=== PATIENT | female | born 1980 | race Two or more races ===

== ENCOUNTER 2018-02-01 10:02 | Emergency (ER) | payer SELFPAY ==
[~2018-02-01] VITALS: Ht 157.5 cm; Wt 71.5 kg
[2018-02-01] MEDS ORDERED: tylenol (10:17)
[2018-02-01] MEDS ORDERED: CEPHALEXIN 250MG CAPSULE PO ONE (11:15)
[2018-02-01] MEDS ORDERED: TETANUS, DIPHTHERIA, PERTUSSIS VAC/PF 0.5ML (>7YR OLD) IM ONE (11:15)
[2018-02-01] MEDS ORDERED: BACITRACIN ZINC OINT UDPKT TOP ONE (12:45)
[2018-02-01 12:53] VITALS: BP 129/59
== END 2018-02-01 12:58 | disposition home or self-care (01) ==
LOC: ER 10:02
DX: T24.102A Burn of first degree of unspecified site of left lower limb, except ankle and foot, initial encounter (principal); F17.200 Nicotine dependence, unspecified, uncomplicated; X11.8XXA Contact with other hot tap-water, initial encounter; Y93.89 Activity, other specified; Y92.018 Other place in single-family (private) house as the place of occurrence of the external cause
CPT/HCPCS: 90471; 90715; 99283

== ENCOUNTER 2018-02-06 12:14 | Emergency (ER) | payer SELFPAY ==
[~2018-02-06] VITALS: Ht 160 cm; Wt 72.0 kg
[~2018-02-06 12:14] MED LIST: tylenol
[2018-02-06] MEDS ORDERED: ACETAMINOPHEN 325MG TABLET PO ONE (15:00)
[2018-02-06] MEDS ORDERED: BACITRACIN ZINC OINT UDPKT TOP ONE (15:00)
[2018-02-06] MEDS ORDERED: IBUPROFEN 600MG TABLET PO ONE (15:00)
[2018-02-06 15:50] VITALS: BP 114/56
== END 2018-02-06 20:31 | disposition home or self-care (01) ==
LOC: ER 20:03
DX: Z48.00 Encounter for change or removal of nonsurgical wound dressing (principal); F17.200 Nicotine dependence, unspecified, uncomplicated
CPT/HCPCS: 99283